=== PATIENT | male | born 1960 | race Caucasian/White ===

== ENCOUNTER → 2021-04-16 | Outpatient (CLI) | payer MEDICARE, OTHER | LOC: KOH-I 11:07 | DX: Z87.891 Personal history of nicotine dependence (principal); R91.1 Solitary pulmonary nodule; I25.10 Atherosclerotic heart disease of native coronary artery without angina pectoris; J43.2 Centrilobular emphysema | CPT/HCPCS: 71271 ==

== ENCOUNTER 2022-01-30 18:15 | Emergency (ER) | payer MEDICARE, OTHER ==
[2022-01-30 19:14] LABS: HEMOGLOBIN 15.8 gm/dl (14.0-17.5); RED BLOOD COUNT 5.18 M/UL (4.20-5.50); WHITE BLOOD COUNT 8.8 K/UL (4.5-11.0)
[2022-01-30 19:35] LABS: BUN/CREATININE RATIO 16 (0-10)
== END 2022-01-31 00:47 | disposition home or self-care (01) ==
LOC: ER1 18:15
PROVIDERS: Physician Assistant
DX: I71.4 Abdominal aortic aneurysm, without rupture (principal); R31.9 Hematuria, unspecified; E11.9 Type 2 diabetes mellitus without complications; J44.9 Chronic obstructive pulmonary disease, unspecified; F17.200 Nicotine dependence, unspecified, uncomplicated; Z79.4 Long term (current) use of insulin; Z86.16 Personal history of COVID-19
CPT/HCPCS: 51702; 80053; 81001; 82962; 85025; 85610; 96372; 99284; J1885